=== PATIENT | male | born 1990 ===

== ENCOUNTER 2016-09-13 16:11 | Inpatient (IN) | payer OTHER ==
[~2016-09-13] VITALS: Ht 188 cm; Wt 74.8 kg
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
--- NOTE | 2016-09-13 16:26 | NUR ---
PT TO TRIAGE FOR +SI WITH PLAN TO JUMP UNDER CAR, ALSO +HI. PT HAS BEEN DIAGNOSED WITH BIPOLAR DISEASE ABOUT 2 MONTH AGO. PT STATES MEDS ARE NOT HELPING. PT DENIES ILLICIT DRUG USE, ADMITS TO HEAVY ETOH USE, LAST DRINK 3 DAYS AGO. VSS. 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 BLEEDING CONTROLLED.
--- NOTE | 2016-09-13 17:11 | NUR ---
APPRECIATE TRIAGE NOTE. PT AMBULATORY TO ROOM 13. SECURITY AND SITTER TO BEDSIDE. PT COOPERATIVE WITH CHANGING. PT HAS FLAT AFFECT, ANSWERS WITH SHORT RESPONSES. PT ENCOURAGED TO PROVIDE URINE SPECIMEN.
[2016-09-13 17:16] LABS: ABSOLUTE BASOPHIL COUNT 0.1 /CUMM (0.0-0.2); ABSOLUTE EOSINOPHIL COUNT 0.1 /CUMM (0.0-0.7); ABSOLUTE GRANULOCYTE CT 6.7 /CUMM (1.4-6.5); ABSOLUTE LYMPH COUNT 1.3 /CUMM (1.2-3.4); ABSOLUTE MONOCYTE COUNT 0.5 /CUMM (0.10-0.60); BASOPHIL % 0.7 % (0.0-2.0); EOSINOPHIL % 0.8 % (0-5); GRANULOCYTE % 77.4 % (42.2-75.2); HEMATOCRIT 45.3 % (42-52); MEAN CORPUSCULAR HGB 30.1 PG (27.0-31.0); MEAN CORPUSCULAR HGB CONC 34.4 G/DL (33.0-37.0); MEAN CORPUSCULAR VOLUME 87.7 FL (80.0-94.0); MEAN PLATELET VOLUME 8.5 FL (7.4-10.4); PLATELET COUNT 213 /CUMM (130-400); RBC DISTRIBUTION WIDTH 13.4 % (11.5-14.5); RED BLOOD CELL CT 5.17 /CUMM (4.70-6.10); WHITE BLOOD CELL COUNT 8.7 /CUMM (4.8-10.8)
[2016-09-13] MEDS ORDERED: FLUOXETINE HCL20 M2 PO (17:24)
[2016-09-13] MEDS ORDERED: DOXYCYCLINE HY100 M2 (17:25)
--- NOTE | 2016-09-13 18:05 | NUR ---
URINE TRIO SENT.
--- NOTE | 2016-09-13 19:46 | NUR ---
PT to be admitted. PEC/ Bedsearch in AM unless there are discharges in [facility]PS tomorrow AM
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
--- NOTE | 2016-09-13 20:55 | NUR ---
PT RESTING ON BED. OFFERS NO COMPLAINTS AT THIS TIME. VERBALIZES UNDERSTANDING OF PLAN OF CARE. FIELD ARTILLERY RADAR OPERATOR REMAINS AT BEDSIDE FOR SAFETY.
--- NOTE | 2016-09-13 22:49 | NUR ---
ASSUMED CARE OF PT PER LILIA GOMEZ. PT RESTING IN RM WITH RR. SITTER IN PLACE IN BH
--- NOTE | 2016-09-14 01:49 | NUR ---
PT SLEEPING WITH RR, SITTER IN PLACE IN BH
--- NOTE | 2016-09-14 04:13 | NUR ---
PT SLEEPING WITH RR. SITTER IN PLACE AT DOOR, PT LYING ON STOMACH.
--- NOTE | 2016-09-14 06:27 | NUR ---
PT SLEEPING WITH RR, NO DISTRESS NOTED. SITTER IN PLACE IN
--- NOTE | 2016-09-14 07:15 | NUR ---
ASSUMED CARE OF PT AT THIS TIME, PT NOTED TO BE SLEEPING ON STRETCHER, SITER REMAINS PRESENT. REG RESP RATE NOTED. WILL CTM
--- NOTE | 2016-09-14 09:01 | NUR ---
PT SITTING UP ON STRETCHER AT THIS TIME, OFFERS NO COMPLAINTS. GILRFRIEND AT BEDSIDE. SITTER REMAINS PRESENT. WILL CTM.
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
--- NOTE | 2016-09-14 11:00 | NUR ---
PT MEDICATED PER EMAR AT THIS TIME. PT AWARE OF ADMISSION PLAN AND IN AGREEMENT. PT STATING HE SLEPT WELL LAST PM. OFFERS NO COMPALINTS. SITTER REMAINS PRESENT AT THIS TIME.
--- NOTE | 2016-09-14 11:25 | NUR ---
PT LYING ON BED WITH GIRLFRIEND AT BEDSIDE. PT CALM AND COOPERATIVE. VSS. PT AWARE OF PLAN TO BE ADMITTED TO [facility]. SITTER AT DOOR.
--- NOTE | 2016-09-14 13:16 | NUR ---
FINGER FOOD TRAY ORDERED.
--- NOTE | 2016-09-14 13:56 | NUR ---
PT LYING ON BED WITH GIRLFRIEND AT BEDSIDE. PT CALM AND COOPERATIVE. VSS.
--- NOTE | 2016-09-14 14:58 | NUR ---
PT RESTING COMFORTABLY ON MED WITH TV ON. PT CALM AND COOPERATIVE AT THIS TIME
[2016-09-14 16:37] VITALS: BP 139/79
--- NOTE | 2016-09-14 17:09 | NUR ---
Patient admitted from ED with +SI and Bipolar. Patient is alert and oriented to person place time and situation. Patient is vague and slow to respond on medical and psych history. Patient affect flat. Patient currently denies pain. Patient reports awaiting clavicle surgery, reports limited use. Patient has contracted for safety while on unit. Declined flu and pnu vaccines. Patient muscle tone appropriate for age. Ambulates ad colleen. Reports having a PCP bu unknown name. Patient is calm and cooperative. Looking forward to assisting Felix with mental health.
[2016-09-14 20:07] VITALS: BP 149/90
--- NOTE | 2016-09-14 22:32 | NUR ---
Pt is out in the community mood is stable little constricted, still adjusting in the unit. Pt is compliant vital signs are stable appetite is good. Will continue to monitor the pt overnight.
[2016-09-15 08:02] VITALS: BP 150/91
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
[2016-09-15 16:23] VITALS: BP 155/89
--- NOTE | 2016-09-15 16:24 | SOCIAL WORKER PROG NOTE PSYCH ---
Social Work Progress Note Progress Note Met with patient for the first time today. Patient presented guarded, defensive and irritable during our meeting. He reported that he was upset being in the hospital and did not realize what the hospitalization would entail. Patient reported that he thought he would be getting individual therapy and have his meds adjusted and be able to discharge shortly after. Patient reported that he was suppose to be receiving a prescription for medicinal marijuana tomorrow and is upset that he will not be able to receive this. Patient discussed for awhile his desire to smoke marijuana and the positive effects he feels from marijuana. Patient reported a dislike for psychotropic medications but did agree to trial Depakote while in the hospital although reporting his resentence. Patient was offered to sign into the hospital voluntary if he would like since he is currently on a PEC and then he would have the option to sign a 3 day. Patient reported continued thoughts of suicide but denied adamantly no set plan or intent. He did report clearly numerous ways he has thought about committing suicide but then reported that if he ever went through with it, it would probably be done impulsively with no set plan. Patient then listed reasons why he would never follow through with suicide and it is only passing thoughts that he experiences.
[2016-09-15 20:01] VITALS: BP 152/88
--- NOTE | 2016-09-15 22:04 | NUR ---
PT IS CALM, COOEPRATIVE WITH STAFF/PEERS, AND COMPLIANT WITH UNIT RULES. PT SPENT TIME WITH A VISITOR DURING SHIFT, ATTENDED AA MEETING AND ALSO WRAP-UP GROUP. PT HAS BEEN SOCAILIZING FOR THE MAJORITY OF SHIFT WITH PEERS AND CLAIMS THE DESIRE TO CONECT MORE WITH THEM. PT SEEKS POSITIVITY AND HAS SPOKEN ABOUT TRYING TO MAINTAIN THIS STATE SEVERAL TIMES THROUGHOUT SHIFT. PT MOOD IS STABLE, AFFECT IS FULL RANGE, APPETITIE IS NORMAL, AND COMMUNCIATION IS NORMAL. PT HAS NO MAJOR COMPLAINTS AND DENIES SI AT THIS TIME.
--- NOTE | 2016-09-16 05:01 | NUR ---
SLEPT WELL VSS.
[2016-09-16 07:55] VITALS: BP 125/88
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
[2016-09-16 12:12] VITALS: BP 147/84
--- NOTE | 2016-09-16 12:12 | CP SOUTH PROGRESS NOTE PSYCH ---
Psych (Inpt) Progress Note Progress Note Include the following elements, when applicable: Involvement in the active treatment of the patient with behavioral observations of the patient and the patient's response to the treatment. Review of the ongoing treatment process in the context of the treatment plan. Indication of how multi-disciplinary staff members are carrying out the treatment plan. Plans for future interventions and recommendations for revision of the treatment plan. Liaison with other physicians/providers. Progress Note: [I discussed this patient's progress to date, current mental status, treatment process in the context of the treatment plan, and discharge planning with staff/ team in the daily morning inpatient team meeting. I also met with the patient myself in individual session.] SUBJECTIVE: "I'm suprised, I feel ok on the medication." OBJECTIVE: Current Medications Sig/Fernando Start time Last Medication Dose Route Stop Time Status Admin Acetaminophen 650 MG Q4P PRN 09/14 1445 AC PO Al Hydroxide/Mg 30 ML Q4-6 PRN PRN 09/14 1445 AC Hydroxide PO Divalproex Sodium 500 MG 0800 09/16 0800 AC 09/16 PO 0931 Divalproex Sodium 500 MG 2200 09/15 2200 AC 09/15 PO 2126 Fluoxetine HCl 20 MG DAILY 09/14 1037 DC 09/15 PO 1129 Haloperidol 5 MG Q8P PRN 09/14 1100 DC PO Lorazepam 1 MG Q6P PRN 09/14 1045 DC PO Magnesium Hydroxide 30 ML Q8P PRN 09/14 1445 AC PO Nicotine 2 MG Q2P PRN 09/14 1430 DC PO Vital Signs Date Time Temp Pulse Resp B/P Pulse O2 O2 Flow FiO2 Ox Delivery Rate 09/16 0755 78 125/88 09/15 2000 98.1 81 152/88 09/15 1623 84 155/89 ASSESSMENT: Patient signed in voluntarily yesterday evening and then submitted a termination of voluntary form. Met with the patient today. He presented A&Ox4. Well-groomed. Behavior calm and cooperative. Affect appeared calm and full-range, non-labile. Mood was euthymic. Speech was normal in rate, tone and volume. Eye contact was appropriate. Denied racing thoughts. Reported depression 0/10 (10 being the worst) and anxiety 1/10 (10 being the worst). He denied active/passive suicidal ideation, plans and intent. He denied urges/thoughts to self-harm. He denied homicidal ideation. He denied auditory and visual hallucinations. There was no evidence of franck delusions, or paranoia. No evidence of barby or hypomania. Reported sleeping well. Reported apptite was good. Thought process appeared organized and linear. Thought content was appropriate. I/J limited. Patient reported tolerating Depakote well and denied untoward medication effects. He reported feeling suprised that he felt "good" on medication, as he reported his mood on Prozac was "up and down (patient had not mentioned that yesterday)" which led him to feeling skeptical about treating symptoms with psychotropics. Psychoeducation was provided on the use of Depakote in Bipolar disorder versus Prozac. Patient verbalized understanding of education. Also, psychoeducation was provided on use of cannabis and alcohol while taking Depakote. Patient was advised against this, as substances may interfere with medication efficacy, and also increase risk of CERTIFIED PROSTHETIST VICE PRESIDENT inhibition and rnegative health effects. Patient verbalized understanding of education. Patient verbalized that he will consider attending [facility] for after care treatment, as he verbalized feeling ambivalent about pursuing [facility] medical card if Depakote is helping manage psychiatric symptoms. Information was provided to the patient on [facility] and patient was encouraged to consider option, as it would provide him with a higher level of support post-discharge from [facility] versus traditional outpatient treatment. Patient additionally relayed that his girlfriend lives with him, which he had not disclosed yesterday on admission. He reported that in the past he has struggled to remember to take medication consistently. Discussed options of him obtaining a pill box and his girlfriend assisting in medication administration. Patient was agreeable to options, which will be discussed in discharge meeting with his girlfriend (TBA). Patient agreeable to continue taking Depakote. PLAN: 1. Continue monitoring the patient on unit for safety, suicidal ideation, and mood. 2. Continue current medications. 3. VPA level scheduled for 09/16/16 at 0600. If patient is discharged by then d/t termination of voluntary being in place, will provide patient with an outpatient lab slip to complete VPA level. 4. Dispo planning per primary team.
--- NOTE | 2016-09-16 12:41 | NUR ---
Pt is present on the unit, attending groups, social and appropriate with peers and staff, mood is stable with full range affect, no issues or complaints reported or observed, pleasant, calm and cooperative.
[2016-09-16 16:06] VITALS: BP 147/86
[2016-09-16 19:29] VITALS: BP 147/81
--- NOTE | 2016-09-16 22:19 | NUR ---
PT IS VISIBLE ON UNIT, SOCIALIZING WITH PEERS AND STAFF. VERY PLEASANT AND COOPERATIVE. ATTENDED WRAP UP MEETING AND PARTICIPATED. NO COMPLAINTS OR SI REPORTED TO THIS MHW. PT HAS A STABLE MOOD AND FULL RANGE AFFECT.
--- NOTE | 2016-09-17 06:57 | NUR ---
PATIENT SLEPT ALL NIGHT.
[2016-09-17 08:01] VITALS: BP 122/92
--- NOTE | 2016-09-17 09:14 | CP SOUTH PROGRESS NOTE PSYCH ---
Psych (Inpt) Progress Note Progress Note Include the following elements, when applicable: Involvement in the active treatment of the patient with behavioral observations of the patient and the patient's response to the treatment. Review of the ongoing treatment process in the context of the treatment plan. Indication of how multi-disciplinary staff members are carrying out the treatment plan. Plans for future interventions and recommendations for revision of the treatment plan. Liaison with other physicians/providers. Progress Note: [I discussed this patient's progress to date, current mental status, treatment process in the context of the treatment plan, and discharge planning with staff/ team in the daily morning inpatient team meeting. I also met with the patient myself in individual session.] SUBJECTIVE: "I'm doing well." OBJECTIVE: Current Medications Sig/Fernando Start time Last Medication Dose Route Stop Time Status Admin Acetaminophen 650 MG Q4P PRN 09/14 1445 AC PO Al Hydroxide/Mg 30 ML Q4-6 PRN PRN 09/14 1445 AC Hydroxide PO Divalproex Sodium 500 MG 0800 09/16 0800 AC 09/17 PO 0825 Divalproex Sodium 500 MG 2200 09/15 2200 AC 09/16 PO 2143 Magnesium Hydroxide 30 ML Q8P PRN 09/14 1445 AC PO Vital Signs Date Time Temp Pulse Resp B/P Pulse O2 O2 Flow FiO2 Ox Delivery Rate 09/17 0801 97.9 83 122/92 09/16 1929 96.9 72 147/81 09/16 1606 95 147/86 09/16 1212 73 147/84 ASSESSMENT: During encounter today, the patient was A&Ox4. He presented calm and cooperative. Affect full-range, mood was "good." Eye contact was appropriate. Speech was normal in rate, tone and volume. Patient reported anxiety of 0/10 (10 being the worst) and depression of 0/10 (10 being the worst). He denied feeling hopeless, helpless, worthless, and guilty. He denied active and passive suicidal ideation, plans and intent. He denied urges to self-harm. He denied homicidal ideation. There was no evidence of paranoia, delusions or underlying psychotic process. He denied auditory and visual hallucinations. No evidence of hypomania/ barby. Thought content was appropriate. Thought process was organized and goal directed. Reported positive energy level, appetite and sleep. Insight and judgement slowly improving since admission to [facility], patient more agreeable to trial Dual Dx IOP. Patient reported tolerating Depakote well and denied acute untoward medication effects. Reported some day time tiredness, which he reported has not interfered with his overall functioning. Continues to attend milieu activities and be social in milieu. He is agreeable to continue taking Depakote. Reported 3/10 right clavicle pain (10 being the worst) this morning. Reviewed that there is prn Tylenol ordered. Patient verbalized understanding. A family meeting was held with the patient, his girlfriend (Gerda), Claudia Martínez LCSW and this script writer. The patient's treatment progress to date, medication regimen, level of safety, and discharge planning were reviewed. The patient was agreeable to following-up with Dual IOP treatment, and motivated to trial abstinence from marijuana. The patient's girlfriend reported that she keeps her gun locked in a safe and that the patient doesn not have access to her safe and safe combination. The patient's girlfriend was supportive of after care treatment recommendation, and expressed no concerns about the patient returning home. The patient and patient's girlfriend were in favor of discharge plan. PLAN: 1. Continue monitoring the patient on unit for safety and mood. 2. Continue current medication regimen. 3. Offer prn Tylenol for right clavicle pain. 4. VPA level tomorrow morning at 0600. 5. Discharge tomorrow with Dual IOP follow-up.
[2016-09-17 12:04] VITALS: BP 141/76
--- NOTE | 2016-09-17 13:12 | NUR ---
PT IS COMPLIANT AND COOPERATIVE. PT IS OUT IN COMMUNITY ITNERACTING WELL WITH STAFF AND PEERS. PT IS ACTIVE IN GROUPS TODAY. PT MOOD IS STABLE WTIH A FULL RANGE AFFECT. PT HAS A FAMILY MEETING WITH HIS GIRLFRIEND TODAY AT 1500. PT DENIES SI
--- NOTE | 2016-09-17 14:08 | NUR ---
PT IS FRIENDLY WITH STAFF AND PEERS. HE IS COMPLIANT WITH HIS MEDS AND REPORTED FEELING A LITTLE TIRED TODAY FROM HIS MEDS. HE IS CALMAND COOPERATIVE AND IS ATTENDING GROUPS. HE DENIES ANY SUICIDAL THOUGHTS AT THIS TIME
[2016-09-17 16:07] VITALS: BP 149/75
--- NOTE | 2016-09-17 16:22 | SOCIAL WORKER PROG NOTE PSYCH ---
Social Work Progress Note Progress Note Patient had family meeting today with this auto service writer, his girlfriend and Rema Plunkett APRN. Patient reported feeling good today but expressed some depression he was experiencing late yesterday afternoon. He reported some insecurity over comparing himself to others and not feeling good enough. He shared this very openly to all of us and appeared to have good insight into this insecurity and how it affects his day to day life. Patient wants to work on this and wants to learn how to manage these negative thoughts that he experiences. Patient has agreed to refrain from marijuana going forward for a time period and will begin IOP with [facility]. He has intake scheduled for tomorrow at 9:30am. He denies SI/HI/AH/ VH at present.
[2016-09-17 19:54] VITALS: BP 146/85
--- NOTE | 2016-09-17 22:05 | NUR ---
PT IS VISIBLE ON UNIT, SOCIALIZING WITH PEERS AND VISITING WITH GIRLFRIEND. VERY PLEASANT AND COOPERATIVE. ATTENDED AA AND WRAP UP MEETING. NO COMPLAINTS OR SI REPORTED. PT HAS A STABLE MOOD AND FULL RANGE AFFECT.
--- NOTE | 2016-09-18 04:35 | NUR ---
PT SLEPT WELL, NO ISSUES.
[2016-09-18 07:29] VITALS: BP 137/81
--- NOTE | 2016-09-18 07:58 | DISCHARGE SUMMARY REPORT-PSYCH ---
Visit Information Visit Dates/Diagnosis' Admission Date: 09/14/16 Discharge Date: 09/18/16 Reason for Admission: Suicidal ideation Psy Discharge Primary Diag: Unspecified Bipolar Disorder Psy Discharge Secondary Diag: Cannabis use disorder, severe; Alcohol use disorder, moderate Hospital Course Significant Lab Findings: Lab Urine Cannabis Screen > 80.00 NG/ML H 09/13/16 1755 Valproic Acid 78.6 ug/mL 09/18/16 0548 Course Complications: None. Consultations: Patient was seen for admission history and physical by Dr. Pablito Cedeño. Please see his note for additional information. Allergies: Coded Allergies: poison eliz extract (RASH, SWELLING 09/13/16) poison oak extract (RASH, SWELLING 09/13/16) poison sumac extract (RASH, SWELLING 09/13/16) Hospital Course/TX Response: Patient was monitored on the unit for safety, suicidal ideation and mood disorder. He participated in multimodal treatments on the unit. Prozac 20mg daily was discontinued, and Depakote DR 500mg was started BID for mood stabilization. He reported tolerating medication well and denied untoward medication effects. VPA level, on the morning of discharge (09/18/16), resulted 78.6 (one day prior to reaching steady state). During the hospital course, the patient's mood and affect improved. Suicidal ideation remitted. A family meeting was held with the patient, his girlfriend, Claudia Martínez LCSW and this telegraphic typewriter operator chief. The patient's treatment progress, level of safety, substance abuse, medications, and safety/discharge planning were reviewed. The patient's girlfriend expressed no acute safety concerns. The patient and his girlfriend were in favor of the patient returning [facility], continuing medication, and following up with [facility] level of care. An intake appointment was scheduled for patient on 09/18/16 at 9:30AM. On the date of discharge, 09/18/16, the patient was alert and oriented to person, place, time and situation. He reported feeling "a lot better." He had no complaints. Speech was normal in rate, tone and volume. Eye contact was appropriate. Affect was full-range. Mood was euthymic. He reported depression of 0/10 (10 being the worst) and anxiety of 1/10 (10 being the worst). He denied feeling hopeless, helpless, worthless, and guilty. He denied active and passive suicidal ideation, plans and intent. He denied urges to self-harm. He denied homicidal ideation. The patient identified his "girlfriend" and "my future" as protective factors. He reported feeling supported by his girlfriend who lives with him. He stated and also believed he will not harm himself or others. He denied auditory and visual hallucinations. There was no evidence of psychosis, paranoia, or delusions. There was no evidence of hypomania or barby. He denied urges/craving to use cannabis and alcohol. He was motivated to remain abstinent from cannabis and alcohol. He was goal-oriented to follow-up with Dual Dx IOP for support in sobriety and further management of psychiatric symptoms. He reported sleep and appetite were good. He reported having good energy. He denied right clavicle pain which he had reported yesterday. Patient reported tolerating all medications well, and denied untoward medication effects. He reported feeling safe and ready for discharge. Discharge HBIPS - Tobacco Use Treatment Offered Post DC Medications Offered: NA-No Tob Use >30 days Post DC Tobacco Treatment Plan: NA-No Tobacco use >30days - EtOH/Drug Use D/O Treatment Offered Post DC Medications Offered: Med Not Indicated for D/O Post DC EtOH/SubAbuse TX Plan: Carlos SubAbuse/Dual IOP Program Appt Date: 09/18/16 Program Appt Time: 0930 Metabolic Screening - Screen if on a Neuroleptic Medication - Metabolic screening should include: - Blood Pressure, BMI, Glucose or Hgb A1c, & a - Lipid profile from within the past 365 days. Metabolic Screening ([X]) Not Applicable, patient not on a neuroleptic. OR () Patient on a neuroleptic(s) . Enter below results for Glucose or Hemoglobin A1C, and lipid panel if obtained during the last 365 days. BMI: 21.100 Blood Pressure: 137/81 Laboratory Results (If applicable): n/a Discharge Instructions General Discharge Information Discharge Medications: Discharge Medications- (Dose, route, freq, indication): HOME MEDICATION LIST START taking these NEW Home Medications: Divalproex Sodium Dose: ORAL, 0800,2200 for mood Qty: 28 Printed (Divalproex Sodium) 500 Milligram stabilization Refills: 0 500 MG TABLET.DR Take 1 tablet by mouth every morning and 1 tablet at bedtime. Discharge prescription for above medication printed and provided to patient today, on 09/18/16. STOP taking these DISCONTINUED Home Medications: Fluoxetine HCl (Fluoxetine Dose: ORAL, DAILY for MENTAL HEALTH HCl) 20 MG CAPSULE 1 Capsule Reason Stopped: Per Doctor Decision Multiple Neuroleptics: ([X]) Not Applicable OR Document below three failed attempts at monotherapy, or a plan to taper to monotherapy, or augmentation of Clozapine. () Patient's Diet: Regular. Patient's Activity: No restrictions. DC Disposition: Patient to return to home and to girlfriend. Recommendations: The patient was advised to please take medications. He was provided with an outpatient lab slip and advised to complete VPA level on the morning of 09/19/16 before taking morning dose of Depakote. He was advised to abstain from all substances. He was advised to follow-up with [facility] intake on 09/18/16 at 9:30AM. He was encouraged to attend AA meetings for support in sobriety. He was advised that in the event of an emergency, to call [phone] to nearest emergency department. Patient verbalized understanding of all instructions. Referred To: [address] (t)[phone] Intake scheduled on 09/18/16 at 9:30AM. Copies To: [facility]
--- NOTE | 2016-09-18 08:00 | NUR ---
Discharge Note Patient given education about bipolar disorder and suicide ideation management. Patient has a good understanding of his med regime and understands need to be compliant. Patient able to identify s/s of bipolar disorder, when to notify MD. patient to f/u with IOP
--- NOTE | 2016-09-18 08:26 | CP SOUTH PROGRESS NOTE PSYCH ---
Psych (Inpt) Progress Note Progress Note Include the following elements, when applicable: Involvement in the active treatment of the patient with behavioral observations of the patient and the patient's response to the treatment. Review of the ongoing treatment process in the context of the treatment plan. Indication of how multi-disciplinary staff members are carrying out the treatment plan. Plans for future interventions and recommendations for revision of the treatment plan. Liaison with other physicians/providers. Progress Note: [I discussed this patient's progress to date, current mental status, treatment process in the context of the treatment plan, and discharge planning with staff/ team in the daily morning inpatient team meeting. I also met with the patient myself in individual session.] SUBJECTIVE: "I feel a lot better." OBJECTIVE: Current Medications Sig/Fernando Start time Last Medication Dose Route Stop Time Status Admin Acetaminophen 650 MG Q4P PRN 09/14 1445 AC PO Al Hydroxide/Mg 30 ML Q4-6 PRN PRN 09/14 1445 AC Hydroxide PO Divalproex Sodium 500 MG 0800 09/18 0800 AC PO Divalproex Sodium 500 MG 0800 09/16 0800 DC 09/17 PO 0825 Divalproex Sodium 500 MG 2200 09/15 2200 AC 09/17 PO 2145 Magnesium Hydroxide 30 ML Q8P PRN 09/14 1445 AC PO Vital Signs Date Time Temp Pulse Resp B/P Pulse O2 O2 Flow FiO2 Ox Delivery Rate 09/18 0729 96.8 78 137/81 09/17 1954 98.2 94 146/85 09/17 1607 87 149/75 09/17 1204 89 141/76 Lab Valproic Acid 78.6 ug/mL 09/18/16 0548 ASSESSMENT: Met with the patient today, on the date of discharge. He was alert and oriented to person, place, time and situation. He reported feeling "a lot better." He had no complaints. Speech was normal in rate, tone and volume. Eye contact was appropriate. Affect was full-range. Mood was euthymic. He reported depression of 0/10 (10 being the worst) and anxiety of 1/10 (10 being the worst). He denied feeling hopeless, helpless, worthless, and guilty. He denied active and passive suicidal ideation, plans and intent. He denied urges to self-harm. He denied homicidal ideation. The patient identified his "girlfriend" and "my future" as protective factors. He reported feeling supported by his girlfriend who lives with him. He stated and also believed he will not harm himself or others. He denied auditory and visual hallucinations. There was no evidence of psychosis, paranoia, or delusions. He denied urges/craving to use cannabis and alcohol. He was motivated to remain abstinent from cannabis and alcohol. He was goal- oriented to follow-up with Dual Dx IOP for support in sobriety and further management of psychiatric symptoms. He reported sleep and appetite were good. He reported having good energy. He denied right clavicle pain which he had reported yesterday. Patient reported tolerating all medications well, and denied untoward medication effects. He reported feeling safe and ready for discharge. PLAN: 1. Discharge to home and girlfriend. 2. F/u with Dual Dx IOP intake at 9:30AM today. 3. Abstain from all substances. Encouraged AA attendence to assit in sobriety. 4. Discharge prescription printed, reviewed with and given to patient. 5. In the event of an emergency, call [phone] to nearest emergency department. Patient verbalized understanding of instructions.
[2016-09-18] MEDS ORDERED: DIVALPROEX SOD500 M2 PO (08:45)
--- NOTE | 2016-09-18 09:26 | SOCIAL WORKER PROG NOTE PSYCH ---
Social Work Progress Note Progress Note Met with Felix today he is feeling good about discharge today. He is going to [facility] for intake today 09/18/16 at 9:30am. Felix denies having any SI/HI, no psychosis. His mood is stable. He stated "I am feeling positive about things now." He stated he likes the medication he is on, and feels it is helping him. He lives iwth his girlfriend, and they may be moving to [place], but he thinks he can get to [facility]. discharge GAF:45
== END 2016-09-18 09:42 | DRG 753 ==
LOC: ERH 16:11 → ERHI 09-14 10:57 → CP SOUTH 09-14 10:57 → ENPENDDIS 09-14 10:57 → ERHI 09-14 13:07 → ERH 09-14 13:07 → CP SOUTH 09-14 16:32
PROVIDERS: Emergency Medicine; ADMIT Psychiatry & Neurology Psychiatry
DX: F31.9 Bipolar disorder, unspecified (principal); F12.20 Cannabis dependence, uncomplicated; F10.20 Alcohol dependence, uncomplicated
CPT/HCPCS: 36415; 80307; 90834; 97110-GO; 97530-GO; G0463; G0480

== ENCOUNTER 2016-11-04 10:57 | Emergency (ER) | payer OTHER ==
[~2016-11-04] VITALS: Ht 188 cm; Wt 81.6 kg
[~2016-11-04 10:57] MED LIST: DIVALPROEX SOD500 M2 PO; DOXYCYCLINE HY100 M2; FLUOXETINE HCL20 M2 PO
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
--- NOTE | 2016-11-04 12:25 | RADIOLOGY REPORT ---
EXAMINATION: XR CLAVICLE, RIGHT CLINICAL INFORMATION: Reason history of clavicle dislocation. COMPARISON: None TECHNIQUE: Two views of the right clavicle. FINDINGS: There is a grade 3 right AC joint separation with soft tissue calcification along the AC joint probably old calcified hematoma. The glenohumeral joint is normal. IMPRESSION: Grade 3 right AC joint separation with soft tissue calcification along the inferior aspect of the distal clavicle probably old calcified hematoma. The glenohumeral joint is intact.
[2016-11-04 12:34] VITALS: BP 120/80
== END 2016-11-04 12:35 ==
LOC: ERH 10:57
DX: S43.101A Unspecified dislocation of right acromioclavicular joint, initial encounter (principal); S61.412D Laceration without foreign body of left hand, subsequent encounter; W19.XXXA Unspecified fall, initial encounter; Y93.9 Activity, unspecified; Y92.9 Unspecified place or not applicable
CPT/HCPCS: 73000-RT

== ENCOUNTER 2016-12-30 09:18 | Emergency (ER) | payer OTHER ==
[~2016-12-30] VITALS: Ht 188 cm; Wt 86.2 kg
[2016-12-30 09:23] VITALS: BP 164/101
[2016-12-30] MEDS ORDERED: VALIUM5 M2 PO (09:46)
[2016-12-30] MEDS ORDERED: DILAUDID2 M1 PO (09:46)
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
== END 2016-12-30 10:12 ==
LOC: ERH 09:18
DX: G89.18 Other acute postprocedural pain (principal)
CPT/HCPCS: 99281

== ENCOUNTER 2017-01-02 16:44 | Emergency (ER) | payer OTHER ==
[~2017-01-02] VITALS: Ht 188 cm; Wt 81.6 kg
[~2017-01-02 16:44] MED LIST changes: +DILAUDID2 M1 PO; +VALIUM5 M2 PO
[2017-01-02 16:56] VITALS: BP 136/80
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
[2017-01-02] MEDS ORDERED: OXYCODONE HCL5 M1 PO (17:17)
[2017-01-02] MEDS ORDERED: CYCLOBENZAPRINE10 M1 PO (17:17)
[2017-01-02] MEDS ORDERED: DICLOFENAC SODI75 M2 PO (17:17)
== END 2017-01-02 17:55 ==
LOC: ERH 16:44
DX: G89.18 Other acute postprocedural pain (principal)